=== PATIENT | female | born 1990 | race Caucasian/White ===

== ENCOUNTER 2023-07-04 18:18 | Emergency (ER) | payer SELFPAY ==
[~2023-07-04] VITALS: Ht 162.6 cm; Wt 70.0 kg
[2023-07-04 18:24] VITALS: TEMP 98.2; O2SAT 100
[2023-07-04 19:51] LABS: BASOPHILS % 0.5 % (0.0-2.0); HEMATOCRIT. 33.6 % (36.0-48.0); HEMOGLOBIN. 11.1 g/dL (12.0-16.0); LYMPHOCYTES % 30.2 % (20.0-50.0); MEAN CORPUSCULAR HEMOGLOBIN 30.1 pg (28.0-32.0); MEAN CORPUSCULAR HGB CONC 33.1 g/dL (31.0-37.0); MEAN CORPUSCULAR VOLUME 90.9 fL (81.0-99.0); MEAN PLATELET VOLUME 6.8 fl (7.4-10.4); MONOCYTES % 7.7 % (2.0-8.0); NEUTROPHILS % 60.6 % (40.0-76.0); PLATELET 195 x1000/uL (130-400); RED BLOOD CELL COUNT 3.69 mill/uL (4.2-5.4); RED CELL DISTRIBUTION WIDTH 14.9 % (11.6-14.6); WHITE BLOOD COUNT 6.4 x1000/uL (4.5-11.0)
[2023-07-04 20:10] LABS: CALCIUM 9.1 mg/dL (8.7-10.4); CREATININE 1.3 mg/dL (0.6-1.0); POTASSIUM 3.6 mEq/L (3.5-5.1); THYROID STIMULATING HORMONE 69.67 uIU/mL (0.55-4.78)
[2023-07-04 20:46] VITALS: BP 110/70; PULSE 60; RESP 15
== END 2023-07-04 20:46 | disposition home or self-care (01) ==
LOC: ER 18:18
DX: E05.00 Thyrotoxicosis with diffuse goiter without thyrotoxic crisis or storm (principal)
CPT/HCPCS: 36415; 80048; 84443; 85025; 99283